=== PATIENT | female | born 1950 | race Caucasian/White ===

== ENCOUNTER 2019-08-31 07:17 | Emergency (ER) | payer MEDICARE ==
[~2019-08-31] VITALS: Ht 167.6 cm; Wt 77.6 kg
[2019-08-31] MEDS ORDERED: SODIUM BICARBONATE SYR 50 MEQ/50 ML DISP.SYRIN IV ONE ×2 (07:44→10:30)
[2019-08-31] MEDS ORDERED: DEXTROSE 50%-WATER 50 ML DISP.SYRIN IV ONE (07:44)
[2019-08-31] MEDS ORDERED: EPINEPHRINE (1:10,000) SYRINGE 1 MG/10 ML DISP.SYRIN IVP ONE ×2 (07:44→10:00)
--- NOTE | 2019-08-31 07:45 | NUR ---
PT REC'D TO ER VIA EMS PT FELL OUT OF BED PARAPLEGIC. LIVES WITH SON. IV STARTED 20G LEFT AC LABS DRAWN SENT TO LAB ., IV BOLUS 500CC GIVEN MOTRIN 600 MG PO FOR LEFT HIP PAIN . PT ON BEDPAN
[2019-08-31] MEDS ORDERED: IV NS 0.9% 500 ML BAG IV ONE (08:00)
[2019-08-31] MEDS ORDERED: IBUPROFEN 600 MG TABLET PO ONE ×2 (08:00→08:02)
[2019-08-31] MEDS ORDERED: CHLORDIAZEPOXIDE HCL 25 MG CAPSULE PO ONE (08:00)
[2019-08-31 08:15] LABS: ALBUMIN 3.4 g/dL (3.4-5.0); BILIRUBIN,DIRECT 0.8 mg/dL (0.0-0.2); BILIRUBIN,TOTAL 1.4 mg/dL (0.2-1.0); CALCIUM, SERUM 11.6 mg/dL (8.5-10.1); CREATININE 0.9 mg/dL (0.6-1.3); TOTAL PROTEIN, SERUM 7.9 g/dL (6.4-8.2)
[2019-08-31 08:16] LABS: BASOPHILS % (AUTO) 0.3 % (0.0-2.0); HEMATOCRIT 37 % (33-45); LYMPHOCYTES # (AUTO) 0.5 /CMM (0.8-4.8); LYMPHOCYTES % (AUTO) 3.1 % (20.0-44.0); MEAN CORPUSCULAR HGB CONC 35 g/dl (31.0-36.0); MEAN CORPUSCULAR VOLUME 88 fL (82-100); MONOCYTES # (AUTO) 0.8 /CMM (0.1-1.30); MONOCYTES % (AUTO) 4.5 % (2.0-12.0); NEUTROPHILS # (AUTO) 15.8 /CMM (1.8-8.9); NEUTROPHILS % (AUTO) 92.1 % (43.0-81.0); PLATELET COUNT (AUTO) 396 /CMM (150-450); RED BLOOD CELL COUNT(AUTO) 4.17 MIL/uL (4.0-5.2); WHITE BLOOD COUNT (AUTO) 17.2 K/uL (4.3-11.0)
[2019-08-31 08:19] LABS: POTASSIUM 1.1 mmol/L (3.5-5.1)
[2019-08-31] MEDS ORDERED: POTASSIUM CHLORIDE 20 MEQ TAB.PRT.SR PO ONE ×2 (08:22→08:30)
[2019-08-31] MEDS ORDERED: POTASSIUM CL. PREMIX PERIPHER. 100 ML ONE (08:22)
--- NOTE | 2019-08-31 08:25 | NUR ---
PT SENT TO CT
[2019-08-31] MEDS ORDERED: POTASSIUM CHLORIDE 10 MEQ/50 ML PREMIXED IVPB FOR PERIPHERAL LINE IV ONE (08:30)
[2019-08-31] MEDS ORDERED: CEFTRIAXONE 1GM BAG (ER ONLY) 1 GM/50 ML PIGGYBACK IV ONE (09:00)
[2019-08-31] MEDS ORDERED: VANCOMYCIN HCL 1 GM in IV D5W 260 ML IV ONE (09:00)
[2019-08-31] MEDS ORDERED: Magnesium 1 GM/2 ML VIAL IV ONE (09:00)
[2019-08-31] MEDS ORDERED: IV NS 0.9% 1,000 ML IV ONE ×2 (09:00→10:00)
--- NOTE | 2019-08-31 09:00 | NUR ---
RT AT BEDSIDE FOR ABG.
[2019-08-31] MEDS ORDERED: Magnesium 1GM/D5W 100ML PREMIX 200 ML IV ONE (09:05)
--- NOTE | 2019-08-31 09:10 | NUR ---
PT RETURNED FROM CT ALTERED RESP DESAT 92 RA . IV STARTED 18G RT AHAND MG GIVEN UNABLE TO GIVEN ORAL . TARANSFERED TO RM 8 RT CALLED .
--- NOTE | 2019-08-31 09:14 | NUR ---
ASSESSED PT ON BED, NO PULSE CALL CODE MD NATHAN, RN AND RT AT BEDSIDE.
--- NOTE | 2019-08-31 09:15 | NUR ---
FIRST EPI GIVEN PER .
--- NOTE | 2019-08-31 09:17 | NUR ---
PULSE CHECK, NO PULSE, NO BREATHING. CPR CONTINUED.
--- NOTE | 2019-08-31 09:19 | NUR ---
PULSE CHECK 2ND EPI GIVEN PER . CONTINUED CPR.
--- NOTE | 2019-08-31 09:21 | NUR ---
PULSE CHECK STILL NO PULSE. CPR CONTINUED.
--- NOTE | 2019-08-31 09:23 | NUR ---
PULSE CHECK, NO PULSE, 3RD EPI GIVEN PER . CONTINUED CPR.
--- NOTE | 2019-08-31 09:26 | NUR ---
PUSLE CHECK, RETURN OF SPONTANEOUS CIRCULATION ESTABLISHED.
[2019-08-31] MEDS ORDERED: IV NS 0.9% 1,000 ML BAG IV ONE ×2 (09:30→10:00)
[2019-08-31] MEDS ORDERED: CEFTRIAXONE 1GM BAG (ER ONLY) 50 ML IV ONE (09:32)
[2019-08-31 09:34] LABS: ABG BASE EXCESS -22.2 mmol/L; ABG OXYGEN SATURATION 97.5 % (92.0-98.5); ABG PCO2 31.2 mmHg (35.0-45.0); ABG PH 7.014 (7.350-7.450); AaDO2 86.5 mmHg; COHb 0.1 % (0.5-1.5); MetHb 0.9 % (0.0-1.5); O2Hb 96.5 % (94.0-97.0); SITE, ABG Left Femoral; VENT MODE, BG NC @ 36%
--- NOTE | 2019-08-31 09:35 | NUR ---
[facility] CATH INSERTED
[2019-08-31 09:57] VITALS: BP 92/55
[2019-08-31 09:58] LABS: APPEARANCE,URINE Clear (CLEAR); BILIRUBIN,URINE SMALL (NEGATIVE); BLOOD, URINE Moderate Ery/uL (NEGATIVE); COLOR,URINE Yellow (YELLOW); KETONES,URINE Negative (NEGATIVE); LEUKOCYTE ESTERASE ,URINE Negative (NEGATIVE); NITRITE, URINE Negative (NEGATIVE); PROTEIN,URINE 100 mg/dl (NEGATIVE); UGLUCOSE Negative (NEGATIVE)
[2019-08-31] MEDS ORDERED: NOREPINEPHRINE 8 MG in IV NS 0.9% 250 ML IV ONE (10:00)
[2019-08-31] MEDS ORDERED: NOREPINEPHRINE 8 MG in IV D5W 500 ML IV PRN (10:00)
[2019-08-31] MEDS ORDERED: CALCIUM CHLORIDE 1,000 MG/10 ML DISP.SYRIN IV ONE ×2 (10:00→10:30)
[2019-08-31 10:05] LABS: BACTERIA,URINE None seen /HPF (None Seen); SQUAMOUS EPITHELIAL CELL,UR Few /HPF (None Seen); WBC,URINE NONE SEEN /HPF (0-3)
--- NOTE | 2019-08-31 10:15 | NUR ---
[facility] CALLED TO FLOOR [facility]
[2019-08-31] MEDS ORDERED: DOPamine 400MG/D5W 250ML RTU 250 ML ONE (10:23)
[2019-08-31] MEDS ORDERED: EPINEPHRINE (1:1000) 5 MG in IV NS 0.9% 245 ML IV PRN (10:30)
[2019-08-31] MEDS ORDERED: HYDROCORTISONE SOD SUCCINATE 100 MG/2 ML VIAL ONE (10:30)
[2019-08-31] MEDS ORDERED: HYDROCORTISONE SOD SUCCINATE 100 MG/2 ML VIAL IV SCH (10:30)
[2019-08-31] MEDS ORDERED: DOPamine 400 MG/D5W 250 ML RTU BAG IV ONE (10:30)
--- NOTE | 2019-08-31 10:33 | NUR ---
IVP CHEST XRAY DONE BP LOW CONT TO MONITOR SOLU COREF 1000 MG
--- NOTE | 2019-08-31 10:36 | NUR ---
CENTRAL LINE STARTED
--- NOTE | 2019-08-31 10:38 | NUR ---
DOPAMINE STARTED RT HAND 18G IVVP
--- NOTE | 2019-08-31 10:47 | NUR ---
DOPAMINE CANCELED PER MD EPI GIVEN PER MD ORDER . CENTRAL LINE LEFT GROIN
--- NOTE | 2019-08-31 10:48 | NUR ---
PT CODED AGAIN CPR AND MEDS GIVEN NO PULSE ULTRASOUND DONE 110 PRONOUNCED . FAMILT NOTIFIED
[2019-08-31] MEDS ORDERED: LEVO50TA8 PO (10:51)
[2019-08-31] MEDS ORDERED: OXYC-128 PO (10:51)
[2019-08-31 10:55] LABS: THYROID STIMULATING HORMONE < 0.007 uIU/mL (0.358-3.74)
[2019-08-31] MEDS ORDERED: MORPHINE SULFATE INJ 2 MG/ML DISP.SYRIN IV PRN (11:00)
[2019-08-31] MEDS ORDERED: Z GUARD REMEDY 2 OZ OINT TP PRN (11:00)
[2019-08-31] MEDS ORDERED: ACETAMINOPHEN 650 MG/SUPP.RECT RC PRN (11:00)
[2019-08-31] MEDS ORDERED: ONDANSETRON HCL/PF 4 MG/2 ML VIAL IVP PRN (11:00)
[2019-08-31] MEDS ORDERED: DEXTROSE 50%-WATER 50 ML DISP.SYRIN ONE (11:03)
[2019-08-31 11:10] LABS: MAGNESIUM 2.7 mg/dL (1.8-2.4); PHOSPHORUS 1.1 mg/dL (2.5-4.9)
[2019-08-31] MEDS ORDERED: ZOSYN IVPB 3.375 G in IV D5W 50ml IV SCH (12:00)
[2019-08-31] MEDS ORDERED: PIPERACILLIN /TAZOBACTAM 4.5 G in IV D5W 50 ML IV SCH (12:00)
--- NOTE | 2019-08-31 12:39 | NUR ---
FAMILY DR CALDWELL HEAR RO SIGN PAPERS AND CLAIM BODY
--- NOTE | 2019-08-31 12:40 | NUR ---
Note undone in EDM - 08/31/19 at 1244 by GLORIA IV removed. Catheter intact and site benign. Pressure and 4x4 applied to site. No bleeding noted.Consents signed per ( ) for placement of chest tube. Physician marked site for placement. ( ) side of chest cleansed with ( ). MD numbed site with ( ) prior to placement. #( ) FR ches tube placed to ( ) side of chest. Tubing sutured in place by MD, then secured with tape to chest wall. Pleuravac connected to chest tube. ( ) drainage noted. Lung sounds auscultated over ( ) chest wall. SaO2 at ( ) %. Patient tolerated procedure well. PCXR done at bedside for tube placement.
[2019-09-01] MEDS ORDERED: PANTOPRAZOLE 40 MG VIAL IV SCH (09:00)
== END 2019-08-31 10:17 | disposition expired ==
LOC: ER 07:43 → ICU 10:10 → UNDOADMIN 10:10 → ER 10:17
DX: A41.9 Sepsis, unspecified organism (principal); G82.20 Paraplegia, unspecified; R53.1 Weakness; E87.6 Hypokalemia; E87.2 Acidosis; I44.7 Left bundle-branch block, unspecified; R00.0 Tachycardia, unspecified; E03.9 Hypothyroidism, unspecified; R40.4 Transient alteration of awareness; Z98.890 Other specified postprocedural states
CPT/HCPCS: 31500; 36415; 36600 ×2; 51702; 70450; 70486; 71045 ×2; 80048; 80061; 80076; 81001; 82803; 83036; 83605; 83735; 84100; 84439; 84443; 84484; 85025; 87040 ×2; 87081; 87086; 93005; 94002; 96365 ×2; 96366; 96368; 96375; 99291; J0171 ×3; J0696; J1265; J1720; J2543; J3475; J3480; J3490 ×2; J7030; J7040; J7050 ×2; J7060; 81000-TC